=== PATIENT | male | born 1965 | race African-American/Black ===

== ENCOUNTER 2024-08-20 11:58 | Emergency (ER) | payer BC ==
[~2024-08-20] VITALS: Ht 177.8 cm; Wt 85.0 kg
[2024-08-20 12:01] VITALS: BP 168/90; PULSE 102; RESP 16; TEMP 98.8; O2SAT 100
[2024-08-20 12:53] LABS: BASOPHILS % 0.2 % (0.0-2.0); DIFFERENTIAL COMMENT 0; EOSINOPHILS % 1.5 % (0.0-5.0); HEMATOCRIT. 35.2 % (42.0-52.0); HEMOGLOBIN. 10.8 g/dL (14.0-18.0); MEAN CORPUSCULAR HEMOGLOBIN 21.9 pg (28.0-32.0); MEAN CORPUSCULAR HGB CONC 30.7 g/dL (31.0-37.0); MEAN CORPUSCULAR VOLUME 71.5 fL (80.0-94.0); MEAN PLATELET VOLUME 7.8 fl (7.4-10.4); MONOCYTES % 5.7 % (2.0-8.0); NEUTROPHILS % 70.6 % (40.0-76.0); PLATELET 293 x1000/uL (130-400); RED BLOOD CELL COUNT 4.92 mill/uL (4.7-6.1); RED CELL DISTRIBUTION WIDTH 15.9 % (11.6-14.6); WHITE BLOOD COUNT 6.6 x1000/uL (4.5-11.0)
[2024-08-20 13:01] LABS: INR 0.9; PROTHROMBIN TIME 10.5 sec (9.6-11.0)
[2024-08-20 13:08] LABS: CHLORIDE 103 mEq/L (98-107); POTASSIUM 3.5 mEq/L (3.5-5.1); SODIUM 137 mEq/L (136-145)
[2024-08-20 13:09] LABS: CARBON DIOXIDE 23 mEq/L (21-32)
[2024-08-20 13:10] LABS: CALCIUM 9.7 mg/dL (8.7-10.4)
[2024-08-20 13:14] LABS: CREATININE 3.5 mg/dL (0.6-1.3); GLUCOSE 107 mg/dL (70-105); UREA NITROGEN BLOOD 27 mg/dL (9-23)
[2024-08-20 13:15] LABS: TROPONIN I HIGH SENSITIVITY 19 ng/L (3.0-53)
== END 2024-08-20 15:03 | disposition home or self-care (01) ==
LOC: ER 11:58
DX: I10 Essential (primary) hypertension (principal); R42 Dizziness and giddiness
CPT/HCPCS: 36415; 71045; 80048; 83880; 84484; 85025; 93005; 99285